=== PATIENT | female | born 1965 | race Caucasian/White ===

== ENCOUNTER 2016-10-07 11:27 | Emergency (ER) | payer OTHER ==
--- NOTE | 2016-10-07 11:58 | CPEKG ---
Heart Rate: 68 RR Interval: 882 P-R Interval: 152 QRSD Interval: 78 QT Interval: 392 QTC Interval: 417 P [place]: 41 QRS [place]: -43 T Wave [place]: 39 EKG Severity - OTHERWISE NORMAL ECG - EKG Impression: SINUS RHYTHM EKG Impression: LEFT AXIS DEVIATION Electronically Signed By: Jovan Ge 07-Oct-2016 16:22:36
--- NOTE | 2016-10-07 12:37 | EDPHY ---
H & P Stated Complaint: Dizziness, nausea, CP for several weeks on and off. Time Seen by Provider: 10/07/16 12:37 HPI/ROS: CHIEF COMPLAINT: 1. Episodic chest pain for 3 weeks, 2. Vertigo x2 days HISTORY OF PRESENT ILLNESS: The patient presents to the emergency department for evaluation of 3 weeks of intermittent nonexertional and nonpleuritic chest pain. The patient has no risk factors for coronary artery disease. The patient states she experiences chest pain throughout the day intermittently. She currently is chest pain-free. Additionally over the past 2 days she is having vertigo. She denies any headache, focal numbness, weakness or additional complaints. The patient denies recent chiropractic manipulation. She has no complaints of neck pain. REVIEW OF SYSTEMS: A comprehensive 10 point review of systems is otherwise negative aside from elements mentioned in the history of present illness. Source: Patient Exam Limitations: No limitations - Personal History LMP (Females 10-55): Extended Cycle BCP/Inj Current Tetanus/Diphtheria Vaccine: Unsure Current Tetanus Diphtheria and Acellular Pertussis (TDAP): Unsure - Medical/Surgical History Hx Asthma: No Hx Chronic Respiratory Disease: No Hx Diabetes: No Hx Cardiac Disease: No Hx Renal Disease: No Hx Cirrhosis: No Hx Alcoholism: No Hx HIV/AIDS: No Hx Splenectomy or Spleen Trauma: No Other PMH: MITRAL VALVE PROLAPSE. Choleycytectomy,APPY, GERD. - Social History Smoking Status: Never smoked - Physical Exam Exam: General Appearance: Alert, no distress Eyes: Pupils equal and round no pallor or injection ENT, Mouth: Mucous membranes moist Respiratory: There are no retractions, lungs are clear to auscultation Cardiovascular: Regular rate and rhythm Gastrointestinal: Abdomen is soft and nontender, no masses, bowel sounds normal Neurological: A&O, normal motor function, normal sensory exam, mild horizontal nystagmus with rightward gaze Skin: Warm and dry, no rashes Musculoskeletal: Neck is supple nontender Extremities: symmetrical, full range of motion Constitutional: Initial Vital Signs Temperature (C) 36.7 C 10/07/16 11:30 Heart Rate 80 10/07/16 11:30 Respiratory Rate 16 10/07/16 11:30 Blood Pressure 130/85 H 10/07/16 11:30 O2 Sat (%) 97 10/07/16 11:30 O2 Delivery Mode Room Air Allergies/Adverse Reactions: morphine Allergy (Intermediate, Verified 10/07/16 11:34) Other-Enter Comments Home Medications: Medication Instructions Recorded Bcp 11/07/14 Omeprazole 11/07/14 Meclizine HCl [Meclizine HCl 25 mg 25 mg PO BID PRN #20 tab 10/07/16 (RX,OTC)] Ondansetron Odt [Zofran Odt] 4 mg PO Q4PRN PRN #20 tab 10/07/16 Medical Decision Making - Diagnostics EKG Interpretation: EKG: Complete interpretation has been separately recorded in the [employer] archive. Summary impression: Sinus rhythm, left axis deviation ED Course/Re-evaluation: The patient presents to the ED with 2 issues 1st is benign positional vertigo. She presents with classic vertigo, mild nausea and horizontal nystagmus. She did have meclizine and improved in the ED. She has no abnormalities noted on her neurologic examination. She has nothing to suggest central vertigo. The patient will be discharged home with a prescription for meclizine and Zofran for this condition. She is given customary aftercare instructions. Additionally, the patient has had atypical chest pain for the past 3 weeks. She is currently asymptomatic. She does admit to being under a fair amount of stress. She has no abnormal breath sounds noted. Her D-dimer is negative which I feel adequately excludes pulmonary embolism. Her EKG and troponin are also within normal limits. At this point time I do feel the patient can work up this condition with her primary care provider as well as Cardiology. She will be instructed to follow up with Cardiology for consideration of a treadmill stress test. She understands to return to the ED for markedly worsening symptoms or other concerns. The patient's liver function tests and lipase are noted to be within normal limits. Differential Diagnosis: Differential diagnosis considered includes pericarditis, acute coronary syndrome , costochondritis, pulmonary embolism, peripheral vertigo, central vertigo, labyrinthitis - Data Points Laboratory Results: Laboratory Results 10/07/16 11:54 10/07/16 11:54 10/07/16 11:54 WBC 5.71 10^3/uL (3.80-9.50) RBC 4.69 10^6/uL (4.18-5.33) Hgb 15.1 g/dL (12.6-16.3) Hct 43.8 % (38.0-47.0) MCV 93.4 fL (81.5-99.8) MCH 32.2 pg (27.9-34.1) MCHC 34.5 g/dL (32.4-36.7) RDW 12.6 % (11.5-15.2) Plt Count 293 10^3/uL (150-400) MPV 10.7 fL (8.7-11.7) Neut % (Auto) 64.6 % (39.3-74.2) Lymph % (Auto) 25.7 % (15.0-45.0) [place] % (Auto) 6.3 % (4.5-13.0) Eos % (Auto) 1.9 % (0.6-7.6) Baso % (Auto) 1.1 % (0.3-1.7) Nucleat RBC Rel Count 0.0 % (0.0-0.2) Absolute Neuts (auto) 3.69 10^3/uL (1.70-6.50) Absolute Lymphs (auto) 1.47 10^3/uL (1.00-3.00) Absolute Monos (auto) 0.36 10^3/uL (0.30-0.80) Absolute Eos (auto) 0.11 10^3/uL (0.03-0.40) Absolute Basos (auto) 0.06 10^3/uL (0.02-0.10) Absolute Nucleated RBC 0.00 10^3/uL (0-0.01) Immature Gran % 0.4 % (0.0-1.1) Immature Gran # 0.02 10^3/uL (0.00-0.10) D-Dimer < 0.27 ug/mLFEU (0.00-0.50) Sodium 142 mEq/L (134-144) Potassium 3.8 mEq/L (3.5-5.2) Chloride 103 mEq/L (97-110) Carbon Dioxide 24 mEq/l (22-31) Anion Gap 15 mEq/L (8-16) BUN 11 mg/dL (7-23) Creatinine 0.8 mg/dL (0.6-1.0) Estimated GFR > 60 Glucose 90 mg/dL (70-100) Calcium 9.8 mg/dL (8.5-10.4) Total Bilirubin 1.0 mg/dL (0.1-1.4) Conjugated Bilirubin 0.4 mg/dL (0.0-0.5) Unconjugated Bilirubin 0.6 mg/dL (0.0-1.1) AST 35 IU/L (14-46) ALT 36 IU/L (9-52) Alkaline Phosphatase 60 IU/L (38-126) Troponin I < 0.012 ng/mL (0-0.034) Total Protein 7.9 g/dL (6.3-8.2) Albumin 4.5 g/dL (3.5-5.0) Lipase 126.0 IU/L (23-300) Medications Given: Discontinued Medications Meclizine HCl (Meclizine Hcl) 25 mg PO EDNOW ONE Stop: 10/07/16 13:03 Last Admin: 10/07/16 13:11 Dose: 25 mg Departure - Departure Disposition: Home, Routine, Self-Care Clinical Impression: Chest pain, Vertigo Condition: Good Instructions: Vertigo (ED), Chest Pain (ED) Additional Instructions: 1. Based upon the testing done in the Emergency Department today we see no evidence of a heart attack. 2. We are unable to fully exclude coronary artery disease based upon the testing available in the Emergency Department. 3. For this reason, we would like you to be seen by cardiology for consideration of additional testing within the next 3 days. 4. Please contact the ornament stitcher, Dr. Fabian Sharpe, you have been referred to schedule this appointment as soon as possible. Their offices are typically open from 8:30am-5pm M-F. 5. Please return to the Emergency Department immediately for any recurrent chest pain, difficulty breathing or other concerns. 6. Please take Zofran and meclizine as needed for your dizziness. Please return to the emergency department for numbness on one side of the body versus the other, weakness, difficulty speaking or for severe headache. Referrals: Sarah Polanco MD [Primary Care Provider] - As per Instructions Fabian Sharpe MD [Medical Doctor] - As per Instructions Prescriptions: Meclizine HCl [Meclizine HCl 25 mg (RX,OTC)] 25 mg PO BID PRN #20 tab PRN Reason: for dizzyness Ondansetron Odt [Zofran Odt] 4 mg PO Q4PRN PRN #20 tab PRN Reason: For Nausea
[2016-10-07 12:49] LABS: % IMMATURE GRANULYOCYTES 0.4 % (0.0-1.1); ABSOLUTE IMMATURE GRANULOCYTES 0.02 10^3/uL (0.00-0.10); ADD DIFF? NO; ADD MORPH? NO; ADD SCAN? NO; ATYPICAL LYMPHOCYTE FLAG 10 (0-99); FRAGMENT RBC FLAG 0 (0-99); HEMATOCRIT 43.8 % (38.0-47.0); HEMOGLOBIN 15.1 g/dL (12.6-16.3); LEFT SHIFT FLG 0 (0-99); LIPEMIA HEMOLYSIS FLAG 90 (0-99); MEAN CELL HEMOGLOBIN 32.2 pg (27.9-34.1); MEAN CELL HEMOGLOBIN CONCENTR. 34.5 g/dL (32.4-36.7); MEAN CELL VOLUME 93.4 fL (81.5-99.8); MEAN PLATELET VOLUME 10.7 fL (8.7-11.7); PLATELET CLUMPS FLAG 0 (0-99); PLATELET COUNT 293 10^3/uL (150-400); RED BLOOD CELL COUNT 4.69 10^6/uL (4.18-5.33); RED CELL DISTRIBUTION WIDTH 12.6 % (11.5-15.2)
[2016-10-07 12:51] LABS: ALANINE AMINOTRANSFERASE 36 IU/L (9-52); ALBUMIN 4.5 g/dL (3.5-5.0); ALKALINE PHOSPHATASE 60 IU/L (38-126); ANION GAP 15 mEq/L (8-16); ASPARTATE AMINOTRANSFERASE 35 IU/L (14-46); BILIRUBIN-CONJUGATED 0.4 mg/dL (0.0-0.5); BILIRUBIN-UNCONJUGATED 0.6 mg/dL (0.0-1.1); CALCIUM 9.8 mg/dL (8.5-10.4); CARBON DIOXIDE 24 mEq/l (22-31); CHLORIDE 103 mEq/L (97-110); CREATININE 0.8 mg/dL (0.6-1.0); GLOMERULAR FILTRATION RATE > 60; GLUCOSE 90 mg/dL (70-100); POTASSIUM 3.8 mEq/L (3.5-5.2); SODIUM 142 mEq/L (134-144); TOTAL PROTEIN 7.9 g/dL (6.3-8.2)
[2016-10-07 13:02] LABS: TROPONIN I < 0.012 ng/mL (0-0.034)
[2016-10-07] MEDS ORDERED: MECLIZINE HCL 25 MG TAB PO ONE (13:02)
[2016-10-07 14:43] VITALS: BP 115/76; PULSE 63; RESP 18; TEMP 98.2; O2SAT 99
== END 2016-10-07 14:43 | disposition home or self-care (01) ==
DX: R07.9 Chest pain, unspecified (principal); R42 Dizziness and giddiness

== ENCOUNTER → 2017-12-13 | Outpatient (CLI) | payer OTHER | LOC: FIMAGING 16:17 | PROVIDERS: ATTEND Family Medicine | DX: Z12.31 Encounter for screening mammogram for malignant neoplasm of breast (principal) ==